=== PATIENT | male | born 1960 | race Two or more races ===

== ENCOUNTER 2024-05-21 06:12 | Outpatient (REF) | payer MEDICARE, SELFPAY ==
[2024-05-21 06:33] LABS: MANUAL DIFF FLAG NO
[2024-05-21 07:20] LABS: Basophils Absolute Auto 0.1 X10*3/uL (0.0-0.2); Basophils Percent Auto 0.9 % (0-2); Eosinophils Absolute Auto 0.4 X10*3/uL (0.0-0.4); Eosinophils Percent Auto 4.4 % (0-4); Hematocrit 39.3 % (42.0-52.0); Hemoglobin 13.1 g/dl (14.0-18.0); Imm Gran Abs Auto 0.06 X10*3/uL (0.00-0.03); Imm Gran Pct Auto 0.7 % (0.0-0.4); Lymphocytes Absolute Auto 2.6 X10*3/uL (1.2-4.9); Lymphocytes Percent Auto 30.3 % (20-40); Mean Corpuscular HGB Conc 33.3 g/dl (31.0-36.0); Mean Corpuscular Hemoglobin 28.4 pg (27.0-33.0); Mean Corpuscular Volume 85.2 fL (80.0-98.0); Mean Platelet Volume 12.4 fL (9.4-12.4); Monocytes Absolute Auto 0.8 X10*3/uL (0.1-1.2); Monocytes Percent Auto 9.3 % (2-11); Neutrophils Absolute Auto 4.7 x10*3/uL (2.0-8.3); Neutrophils Percent Auto 54.4 % (45-73); Platelet Count 187 X10*3/uL (160-400); Red Blood Count 4.61 X10*6/uL (4.60-5.80); Red Cell Distribution Width 14.6 % (11.0-16.0); White Blood Count 8.6 X10*3/uL (4.8-10.8)
[2024-05-21 07:48] LABS: Anion Gap 12 (12-20); Blood Urea Nitrogen 19 mg/dL (9-16); Carbon Dioxide 26 mmol/L (22-29); Chloride 107 mmol/L (96-108); Cholesterol 185 mg/dL (<200); Estimated Glomerular Filt Rate > 60; Glucose Random 94 mg/dL (60-115); HDL Cholesterol 51 mg/dL (>40); LDL Cholesterol Calculated 116 mg/dL (<100); Sodium 141 mmol/L (135-145); Triglycerides 91 mg/dL (<150)
== END 2024-05-21 06:13 | disposition home or self-care (01) ==
LOC: HO.LAB 06:12
PROVIDERS: PCP Internal Medicine; Visit Provider Internal Medicine
DX: Z00.00 Encounter for general adult medical examination without abnormal findings (principal); R35.1 Nocturia; D64.9 Anemia, unspecified; Z12.5 Encounter for screening for malignant neoplasm of prostate
CPT/HCPCS: 36415; 80048; 80061; 84153; 85025

== ENCOUNTER → 2024-08-27 10:56 | Outpatient (BNVA) | payer MEDICARE, SELFPAY | PROVIDERS: PCP Internal Medicine; Visit Provider Nurse Practitioner ==

== ENCOUNTER 2025-03-05 13:43 | Outpatient (AMB) | payer MEDICARE, SELFPAY ==
--- NOTE | 2025-03-05 13:44 | A.OFFVIS_ITS ---
Vital Signs 03/05/25 13:58 Height 5 ft 4 in Weight 166 lb BMI 28.5 BP 129/77 Blood Pressure Location Rt brachial Position Sitting Pulse 80 Intake Visit Reasons: Colonoscopy Screening Intake Note: Patient scheduled for Colonoscopy screening. Reports hx of colonoscopy @ [facility] in 2014. Brother at age 47 of Colon CA. Patient c/o: external hemorrhoids. [facility] Required: No Accompanied by: cousin Christiano Allergies aspirin Adverse Reaction (Mild, Verified 03/05/25 13:52) stoma Medication List - Last Reconciled 03/05/25 by Enmanuel Jay MD albuterol sulfate 90 mcg/actuation (Ventolin HFA) inhalation cetirizine (Zyrtec) 10 mg PO DAILY PRN sildenafil mg PO sodium,potassium,mag sulfates 17.5-3.13-1.6 gram (Suprep Bowel Prep Kit) DILUTE; drink full amount early evening before AND next morning at least 2 hr before procedure; follow w 960 mL water PO HPI HPI Colonoscopy Screening: Details: 64-year-old male referred for screening colonoscopy. His last colonoscopy was in 2014 in [place]. He describes having a brother who had colon cancer at age of 47. He says he is supposed to have a colonoscopy every 5 years He otherwise denies GI complaints. Denies bleeding per rectum He admits to occasional shortness of breath because of his emphysema. He is an ex-smoker. He admits to vaping now. [facility] Medical History (Updated 03/05/25 @ 14:04 by Enmanuel Jay MD) Emphysema lung Surgical History (Updated 08/22/24 @ 14:00 by VIRY Perez) H/O colonoscopy H/O umbilical hernia repair Family History (Updated 03/05/25 @ 13:54 by DOV Munoz) Brother Colon cancer Social History (Updated 03/05/25 @ 13:55 by DOV Munoz) Tobacco use type: Smokeless Tobacco Review of Systems Const Denies chills and Denies fever(s) Card Denies chest pain, Reports dyspnea and Reports dyspnea on exertion Resp Denies cough, Reports dyspnea and Reports dyspnea on exertion GI Denies hematochezia and Denies change in bowel habits Denies hematuria and Denies difficulty urinating Musc Denies back pain and Denies limited range of motion Neuro Denies focal weakness and Denies convulsions Psych Denies depression and Denies mood swings Physical Exam Vital Signs: Last Vital Signs Pulse 80 03/05/25 13:58 BP 129/77 03/05/25 13:58 BMI result Body Mass Index 28.5 Const General: comfortable and no acute distress Orientation/consciousness: patient oriented x3 Neck Neck: Yes no lymphadenopathy Resp Auscultation: clear to auscultation bilaterally Cardio Rhythm: regular rhythm GI Palpation (GI): Soft to palpation, nontender and no guarding Neuro General: patient oriented x3 Assessment & Plan Assessment & Plan (1) Family history of colon cancer in father: Code(s): Z80.0 - Family history of malignant neoplasm of digestive organs Category: Medical Plan: I reviewed with him the technique of colonoscopy for screening in view of his family history. I explained the risks including but not limited to bleeding and perforation, as well as the benefits and alternatives. He understands and wants to proceed. I reminded him that because his brother had colon cancer at a young age, he should have a colonoscopy at least once every 5 years I will also recommend to him genetic testing because of this family history. Medications: New sodium,potassium,mag sulfates 17.5-3.13-1.6 gram (Suprep Bowel Prep Kit) DILUTE; drink full amount early evening before AND next morning at least 2 hr before procedure; follow w 960 mL water PO 354 mL 0RF Coding Level of Care Code New Pt Level 3 (93892) Diagnoses Family history of colon cancer in father Z80.0
[2025-03-05 13:58] VITALS: BP 129/77; PULSE 80; BMI 28.5
--- OUTSIDE RECORDS SUMMARY | 2025-03-05 16:34 | XMS_ITS | Clinical Summary ---
Author Organization [facility] Address [address] [place] [address] Care Team Providers Care Criminal Analyst Name Role Phone DottyMiguel A torrez SHILA Primary Care Provider [phone] Source Comments PLEASE NOTE, if this patient is a minor, it may be UNLAWFUL to discuss sensitive information that is contained in these records (such as FAMILY PLANNING, MENTAL HEALTH or SUBSTANCE ABUSE) with the minor patient's parent or other person without the patient's specific authorization.[facility] Allergies Active Allergy Reactions Criticality Noted Date Comments Aspirin Other (See Comments) 10/05/2016 Upset stomach Penicillins Itching 10/05/2016 Medications MOMETASONE FUROATE, BULK, MISCIndications :Routine general medical examination at a health care facility 0.1 % by miscellaneous route 1 to 2 (one to two) times daily. Active nplqrexh-zxw-XY -lycopen-lutein (CENTRUM SILVER ULTRA MEN'S) 300-600-300 mcg tabIndications: Routine general medical examination at a health care facility Take by mouth. Activ e cetirizine (ZYRTEC) 10 mg tabletIndicatio ns:Routine general medical examination at a health care facility Take 1 Tab by mouth once daily. 30 Tab 6 6 Active ferrous sulfate 325 mg (65 mg iron) tablet Take 1 Tab by mouth once daily with breakfast 30 Tab 5 7 Active mometasone (ELOCON) 0.1 % creamIndication s:Dermatitis Apply topically once daily Apply as a thin film. 15 g 3 9 Active Active Problems Problem Noted Date Diagnosed Date Anemia 10/12/2017 H/O colonoscopy. done 2013 [facility], due in 5yrs due to family history: 201810/05/2016 Seasonal allergic rhinitis 10/05/2016 Dermatitis 10/05/2016 Immunizations Immunization Administration Dates Next Due PNEUMOCOCCAL POLYSACCHARIDE PPV23 12/05/2018 TDAP 12/05/2018 Family History Medical History Relation Name Comments Cancer Brother colon Relation Name Status Comments Brother Alive Father Mother Sister 1 Alive Sister 2 Alive Social History Tobacco Use Types Packs/Day Years Used Date Smoking Tobacco: Former Cigarettes Smokeless Tobacco: Never Comments:electrical cigarett es Alcohol Use Standard Drinks/Week Comments Yes 0 (1 standard drink = 0.6 oz pur e alcohol) 2 beers on weekends Social Connections Answer Date Recorded Social Connections and Isolation 0 07/20/2019 Financial Resource Strain Answer Date R ecorded Financial Resource Strain 0 2018 Stress Answer Date Recorded Stress 0 07/20/2019 Physical Activity Answer Date Recorded Physical Activity 0 07/20/2019 Food Insecurity Answer Date Recorded Food 0 07/20/2019 Transportation Needs Answer Date Record ed Transportation 0 07/20/2019 Housing Stability Answer Date Recorded Housing 0 07/20/2019 Safety and Environment Answer Date Je rded Safety 0 07/20/2019 Utilities Answer Date Recorded Utilities 0 07/20/2019 Employment Answer Date Recorded Employment 0 07/20/2019 Sex and Gender Information Value Date Recorded Sex Assigned at Male 10/09/2017 5:58 AM PST Legal Sex Male 12:31 PM PDT Gender Identity Male 10/09/2017 5:58 AM PST Sexual Orientation Straight 10/09/2017 5: 58 AM PST 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 Not on file Not on file Last Filed Vital Signs Vital Sign Reading Time Taken Comments Blood Pressure 122/68 12/05/2018 8:44 AM EST Pulse 76 12/05/2018 8:44 AM EST Temperature 36.9 ??C (98.4 ??F) 12/05/2018 8:44 AM ES T Respiratory Rate 16 12/05/2018 8:44 AM EST Oxygen Saturation - - Inhaled Oxygen Concentration - - Weight 75.2 kg (165 lb 11.2 oz) 12/05/2018 8:44 AM EST Height 167 cm (5' 5.75 ) 12/05/2018 8:44 AM EST Body Mass Index 26.95 12/05/2018 8:44 AM EST Plan of Treatment Not on file Insurance [employer]/[place] Subscriber Plan / Payer (Ef fective 2016-Present) Name:Brent Severino Relation to Subscriber:Self Name:Brent Severino Payer ID:[id number] Type:Indemnity Address: [address] [address] Care Teams Criminal Analyst Relationship Specialty Start Date End Date Miguel A Smart NP [address] [place] [address] PCP - General HANDKERCHIEF SAMPLE CLERK Gerontology 11/25/18
== END 2025-03-05 14:12 | disposition home or self-care (01) ==
LOC: HO.HGS 13:43
PROVIDERS: PCP Internal Medicine; Visit Provider Surgery
DX: Z80.0 Family history of malignant neoplasm of digestive organs (principal)
CPT/HCPCS: 99203

== ENCOUNTER → 2025-03-05 13:43 | Outpatient (BNVA) | payer MEDICARE, SELFPAY | PROVIDERS: PCP Internal Medicine; Visit Provider Surgery | DX: Z01.818 Encounter for other preprocedural examination (principal); Z80.0 Family history of malignant neoplasm of digestive organs | CPT/HCPCS: 99202; 99212 ==

== ENCOUNTER 2025-04-17 06:38 | Day surgery (SDC) | payer MEDICARE, SELFPAY ==
--- OUTSIDE RECORDS SUMMARY | 2025-03-19 15:31 | XMS_ITS | Clinical Summary ---
Author Organization [facility] Address [address] [place] [address] Care Team Providers Care Remote Ruby On Rails Developer Name Role Phone DottyMiguel A torrez SHILA Primary Care Provider [phone] Source Comments PLEASE NOTE, if this patient [...] 2 (one to two) times daily. Active tocxtczw-rir-XP -lycopen-lutein (CENTRUM SILVER ULTRA MEN'S) 300-600-300 mcg [...] Date Anemia 10/12/2017 H/O colonoscopy. done 2013 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
--- NOTE | 2025-04-15 14:45 | P.CONAN_ITS ---
Documented by User: Elida Degroot NP 04/15/25 14:45 HPI - Anesthesia Eval Consult details Narrative: 64yo M for Colonoscopy with Possible Polypectomy PMFSH Active Problems Active Problems: All Active Problems Emphysema lung (Acute) Family history of colon cancer in father (Acute) Allergic rhinitis (Acute) COPD (chronic obstructive pulmonary disease) (Acute) Past Medical History Medical History Emphysema lung Family History Family History Brother Colon cancer Surgical History Surgical History H/O colonoscopy H/O umbilical hernia repair Social History Social History Are you a primary farm or ranch animal caretaker to a significant other at home: No Do you presently have visiting nurse or other home services: No Patient Tobacco Use Status: Current everyday Tobacco user Tobacco use type: Smokeless Tobacco Use of substances other than those prescribed or required for medical reasons: No Have you been hit, kicked, punched, or otherwise hurt by someone within the past year? If so, by whom?: No Are you DNR?: No Advance Directives: No Advance Directives Information Provided: Yes Poor oral hygiene: No Meds Allergies Allergy/AdvReac Type Severity Reaction Status Date / Time Penicillins Allergy Mild Itching Verified 04/17/25 06:44 aspirin AdvReac Mild Abdominal Verified 04/17/25 06:44 Pain Home Medications ?Medication ?Instructions ?Recorded ?Confirmed ?Last Taken ?Type albuterol sulfate 90 mcg/actuation inhalation 03/05/25 03/05/25 04/17/25 History aerosol inhaler (Ventolin HFA) cetirizine 10 mg capsule (Zyrtec) 10 mg PO DAILY PRN Allergy Symptoms 03/05/25 03/05/25 Unknown History sildenafil 50 mg tablet mg PO 03/05/25 03/05/25 Unknown History umeclidinium 62.5 mcg-vilanterol 1 ea inhalation DAILY 04/17/25 04/17/25 04/17/25 History 25 mcg/actuation powdr for inhalation (Anoro Ellipta) Assessment and Plan Assessment Anesthesia Assessment: Chart Reviewed Documented by User: Karely Teresa MD 04/17/25 07:20 PMFSH Past Medical History Medical History Emphysema lung Functional capacity: wheelchair bound Family History Family History Brother Colon cancer Surgical History Surgical History H/O colonoscopy H/O umbilical hernia repair History of Problems with Anesthesia: No Social History Social History Are you a primary farm or ranch animal caretaker to a significant other at home: No Do you presently have visiting nurse or other home services: No Patient Tobacco Use Status: Current everyday Tobacco user Tobacco use type: Smokeless Tobacco Use of substances other than those prescribed or required for medical reasons: No Have you been hit, kicked, punched, or otherwise hurt by someone within the past year? If so, by whom?: No Are you DNR?: No Advance Directives: No Advance Directives Information Provided: Yes Poor oral hygiene: No Meds Allergies Allergy/AdvReac Type Severity Reaction Status Date / Time Penicillins Allergy Mild Itching Verified 04/17/25 06:44 aspirin AdvReac Mild Abdominal Verified 04/17/25 06:44 Pain Home Medications ?Medication ?Instructions ?Recorded ?Confirmed ?Last Taken ?Type albuterol sulfate 90 mcg/actuation inhalation 03/05/25 03/05/25 04/17/25 History aerosol inhaler (Ventolin HFA) cetirizine 10 mg capsule (Zyrtec) 10 mg PO DAILY PRN Allergy Symptoms 03/05/25 03/05/25 Unknown History sildenafil 50 mg tablet mg PO 03/05/25 03/05/25 Unknown History umeclidinium 62.5 mcg-vilanterol 1 ea inhalation DAILY 05/23/25 05/23/25 05/23/25 History 25 mcg/actuation powdr for inhalation (Anoro Ellipta) Exam Airway Mallampati Class: III TM Dist: >3cm Neck ROM: Full Loose/Missing/Broken Teeth: No Heart: RRR Lungs: CTA Assessment and Plan Assessment Anesthesia Assessment: Anesthesia Plan Discussed Final Anesthetic Review History of Problems with Anesthesia: No NPO: Yes ASA Class: III Final Preanesthetic Review: Meds/Allgs Chart Reviewed, Consent Obtained/Reviewed and Anes Risks/Benef Reviewed Patient Risk: Intermediate Procedure Risk: Low Anesthetic Plan Anesthetic Plan: MAC: Disposition: Standard PACU
[2025-04-15 15:35] VITALS: BMI 28.5
[2025-04-17 06:56] VITALS: BP 119/77; PULSE 84; RESP 14; TEMP 36.7; O2SAT 98; BMI 28.0
[2025-04-17] MEDS: Lactated Ringers 1,000 ML 100 ML IVCONT (07:08)
--- NOTE | 2025-04-17 07:20 | MHC.SHP ---
Pre-Procedural Eval Section A - 24 Hr Update-Section A only Date of Service: 04/17/25 Section B - Complete if H&P > 30 days Chief Complaint: Family history of malignant neoplasm of digestive Details of Present Illness: for colonoscopy - has no GI complaints Relevant Family History (Specify if Yes): No Relevant Social History: None Present Medications: see Short Stay Collaborative assessment Medical History: Significant History (COPD) Allergies: Allergies Allergy/AdvReac Type Severity Reaction Status Date / Time Penicillins Allergy Mild Itching Verified 04/17/25 06:44 aspirin AdvReac Mild Abdominal Verified 04/17/25 06:44 Pain Review of Systems Sugical H&P ROS: Negative: Constitution, Respiratory and Gastrointestinal Exam Surgical H&P Exam: Normal: Heart, Normal: Lungs and Normal: Abdomen Plan Diagnosis/Plan: Unchanged I have reviewed the history and physical and performed a pertinent physical examination on my patient. No changes have occurred unless specified. Time Spent With Patient Time: Total time managing care of this patient today ____ minutes.
[2025-04-17 07:58] VITALS: BP 85/57; PULSE 89; RESP 18; TEMP 36.1; O2SAT 97
--- NOTE | 2025-04-17 07:59 | P.OP_ITS ---
Operative Note Operative Note Date of Service: 04/17/25 Narrative: Preop diagnosis: Family history of colon cancer Postop diagnosis: 1. Heavy diverticulosis of the sigmoid 2. Large Internal external hemorrhoids Procedure: Colonoscopy Surgeon: Enmanuel Jay MD The patient is a 64-year-old male with a family history of colon cancer. His last colonoscopy was however more than 10 years ago. He understood the technique of the planned procedure as well as the risks, benefits, and alternatives. The patient was brought to the operating room and placed in left lateral decubitus position under monitored anesthesia care. A surgical time-out was don e. A full digital rectal exam was done and this did not reveal any significant anal lesions. The tip of the Olympus colonoscope was gently introduced through the anal orifice advanced with insufflation all the way to the cecum. The cecum was intubated. The cecum was identified by visualization of the ileocecal valve as well as the appendiceal orifice. The cecal mucosa was unremarkable. The s cope was gradually withdrawn with careful examination of the entire colonic mucosa being done with scope withdrawal. The patient had adequate bowel prep so it was unlikely that any lesion may have been missed. He had heavy diverticulosis in the sigmoid colon. The rectum was reached and there were no lesions seen. The anal canal was unremarkable. The scope was then withdrawn completely with desufflation The patient tolerated the procedure well. There were no immediate complications. In view of his family history, I would recommend a colonoscopy in the next 5 years.
[2025-04-17 08:14] VITALS: BP 129/97; PULSE 85; RESP 17; TEMP 36.1; O2SAT 98
== END 2025-04-17 08:35 | disposition home or self-care (01) ==
PROVIDERS: PCP Internal Medicine; Visit Provider Surgery
PROC: 0DBE8ZZ Excision of Large Intestine, Via Natural or Artificial Opening Endoscopic (ICD-10-PCS; CPT G0105; principal; 2025-04-17 07:30)
DX: Z12.11 Encounter for screening for malignant neoplasm of colon (principal); Z80.0 Family history of malignant neoplasm of digestive organs; K57.30 Diverticulosis of large intestine without perforation or abscess without bleeding; K64.8 Other hemorrhoids; K64.4 Residual hemorrhoidal skin tags; J43.9 Emphysema, unspecified; F17.290 Nicotine dependence, other tobacco product, uncomplicated; Z79.899 Other long term (current) drug therapy; Z88.6 Allergy status to analgesic agent; Z98.890 Other specified postprocedural states
CPT/HCPCS: G0105; J2003; J2704

== ENCOUNTER → 2025-04-17 06:38 | Outpatient (BNV) | payer MEDICARE, SELFPAY | PROVIDERS: PCP Internal Medicine; Visit Provider Surgery | DX: Z12.11 Encounter for screening for malignant neoplasm of colon (principal); K57.90 Diverticulosis of intestine, part unspecified, without perforation or abscess without bleeding; K64.8 Other hemorrhoids; Z80.0 Family history of malignant neoplasm of digestive organs | CPT/HCPCS: G0105 ==

== ENCOUNTER 2025-04-30 10:04 | Outpatient (AMB) | payer MEDICARE, SELFPAY ==
--- NOTE | 2025-04-30 10:07 | A.OFFVIS_ITS ---
Vital Signs 04/30/25 10:11 Height 5 ft 4 in Weight 169 lb BMI 29.0 BP 138/72 Blood Pressure Location Rt brachial Position Sitting Pulse 106 H Intake Visit Reasons: S/P colonoscopy Intake Note: Patient here s/p colonoscopy on 04-17-2025. Reports procedure went well. Repeat colonoscopy recommended for 5yrs (recall message placed). Accompanied by: Self / Same As Patient Allergies Penicillins Allergy (Mild, Verified 04/30/25 10:10) Itching aspirin Adverse Reaction (Mild, Verified 04/30/25 10:10) Abdominal Pain Medication List - Last Reconciled 04/30/25 by Enmanuel Jay MD albuterol sulfate 90 mcg/actuation (Ventolin HFA) inhalation cetirizine (Zyrtec) 10 mg PO DAILY PRN sildenafil mg PO sodium,potassium,mag sulfates 17.5-3.13-1.6 gram (Suprep Bowel Prep Kit) DILUTE; drink full amount early evening before AND next morning at least 2 hr before procedure; follow w 960 mL water PO umeclidinium-vilanterol 62.5-25 mcg/actuation (Anoro Ellipta) 1 ea inhalation DAILY HPI HPI S/P colonoscopy: Details: He underwent colonoscopy for screening last 04/17/2025. He tolerated procedure well. He currently denies significant complaints. [facility] Medical History Emphysema lung Surgical History H/O colonoscopy H/O umbilical hernia repair Family History Brother Colon cancer Social History Are you a primary palliative care nurse practitioner to a significant other at home: No Do you presently have visiting nurse or other home services: No Patient Tobacco Use Status: Current everyday Tobacco user Tobacco use type: Smokeless Tobacco Review of Systems Const Denies chills and Denies fever(s) Card Denies chest pain Resp Denies cough GI Denies abdominal pain and Denies hematochezia Physical Exam Const General: comfortable and no acute distress Resp Effort & Inspection: normal respiratory effort Cardio Rate: regular rate GI Palpation (GI): Soft to palpation Assessment & Plan Assessment & Plan (1) Family history of colon cancer in father: Code(s): Z80.0 - Family history of malignant neoplasm of digestive organs Category: Medical Plan: Status post colonoscopy. Intraop findings showed heavy diverticulosis of the sigmoid, and hemorrhoids I did not see any polyps or any lesions In view of family history I reminded him that I am recommending another colonoscopy within 5 years. Coding Level of Care Code Est Pt Level 2 (54688) Diagnoses Family history of colon cancer in father Z80.0
[2025-04-30 10:11] VITALS: BP 138/72; PULSE 106; BMI 29.0
--- OUTSIDE RECORDS SUMMARY | 2025-04-30 11:37 | XMS_ITS | Clinical Summary ---
Author Organization [facility] Address [address] [place] [address] Care Team Providers Care Furniture Inspector Name Role Phone DottyMiguel A torrez SHILA Primary Care Provider [phone] Source Comments PLEASE NOTE, if this patient [...] 2 (one to two) times daily. Active [id number] -lycopen-lutein (CENTRUM SILVER ULTRA MEN'S) 300-600-300 mcg [...] Date Anemia 10/12/2017 H/O colonoscopy. 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
== END 2025-04-30 10:20 | disposition home or self-care (01) ==
LOC: HO.HGS 10:04
PROVIDERS: PCP Internal Medicine; Visit Provider Surgery
DX: Z80.0 Family history of malignant neoplasm of digestive organs (principal)
CPT/HCPCS: 99212

== ENCOUNTER → 2025-04-30 10:04 | Outpatient (BNVA) | payer MEDICARE, SELFPAY | PROVIDERS: PCP Internal Medicine; Visit Provider Surgery | DX: K57.30 Diverticulosis of large intestine without perforation or abscess without bleeding (principal); K64.9 Unspecified hemorrhoids; Z80.0 Family history of malignant neoplasm of digestive organs; Z98.890 Other specified postprocedural states | CPT/HCPCS: 99212 ==